=== PATIENT | female | born 1970 | race Hispanic/Latino ===

== ENCOUNTER 2016-11-25 12:40 | Emergency (ER) | payer OTHER ==
[~2016-11-25] VITALS: Ht 160 cm; Wt 76.7 kg
[~2016-11-25 12:40] MED LIST: ALEVE220 M2 PO; ALEVE220 MG PO; AMOXICILLIN875 MG PO; ATARAX,VISTARIL25 MG PO; FLEXERIL10 MG PO; HYDROCODON-ACE1 EA12 PO; IBUPROFEN800 MG PO; MOTRIN800 MG PO; OXYCODONE H5 MG/5 ML PO; PREDNISONE10 MG PO; PREDNISONE20 MG PO; TYLENOL WITH C1 EACH PO; ULTRAM50 MG PO; VENTOLIN HFA18 GM IH
[2016-11-25] MEDS ORDERED: NAPROSYN500 MG PO (13:06)
[2016-11-25] MEDS ORDERED: FLEXERIL10 MG PO (13:06)
[2016-11-25] MEDS ORDERED: PREDNISONE20 MG PO (13:06)
[2016-11-25 13:38] VITALS: BP 131/77
== END 2016-11-25 13:39 | disposition home or self-care (01) ==
LOC: EME 12:40
DX: M54.5 Low back pain (principal); M79.605 Pain in left leg; J45.909 Unspecified asthma, uncomplicated
CPT/HCPCS: 99281; 99283; J1885; J7512

== ENCOUNTER 2017-01-25 11:33 | Emergency (ER) | payer OTHER ==
[~2017-01-25] VITALS: Ht 154.9 cm; Wt 75.5 kg
[~2017-01-25 11:33] MED LIST changes: +NAPROSYN500 MG PO
[2017-01-25 12:47] VITALS: BP 118/79
== END 2017-01-25 12:48 | disposition home or self-care (01) ==
LOC: EME 11:33
DX: M54.9 Dorsalgia, unspecified (principal); G89.29 Other chronic pain
CPT/HCPCS: 99281; 99283

== ENCOUNTER 2017-07-16 05:07 | Emergency (ER) | payer OTHER ==
[~2017-07-16] VITALS: Ht 154.9 cm; Wt 73.4 kg
[2017-07-16] MEDS ORDERED: MEDROL DOSEPAK4 MG PO (08:42)
[2017-07-16] MEDS ORDERED: TYLENOL WITH C1 EACH PO (08:43)
[2017-07-16 10:19] VITALS: BP 115/67
== END 2017-07-16 09:15 | disposition home or self-care (01) ==
LOC: EME 05:07
DX: M54.42 Lumbago with sciatica, left side (principal)
CPT/HCPCS: 99281; 99284; J1885; J2270

== ENCOUNTER 2017-09-23 12:32 | Emergency (ER) | payer OTHER ==
[~2017-09-23] VITALS: Ht 154.9 cm; Wt 75.2 kg
[~2017-09-23 12:32] MED LIST changes: +MEDROL DOSEPAK4 MG PO
[2017-09-23] MEDS ORDERED: CONSTULOSE10 GM/15 M PO (17:21)
[2017-09-23 18:10] VITALS: BP 110/80
== END 2017-09-23 18:18 | disposition home or self-care (01) ==
LOC: EME 12:32
DX: K59.00 Constipation, unspecified (principal); J45.909 Unspecified asthma, uncomplicated; Z98.890 Other specified postprocedural states
CPT/HCPCS: 99281; 99284; J2060

== ENCOUNTER 2018-06-11 10:52 | Emergency (ER) | payer OTHER ==
[~2018-06-11] VITALS: Ht 154.9 cm; Wt 76.0 kg
[~2018-06-11 10:52] MED LIST changes: +CONSTULOSE10 GM/15 M PO
[2018-06-11] MEDS ORDERED: NAPROSYN500 MG PO (11:54)
[2018-06-11 12:53] VITALS: BP 126/86
== END 2018-06-11 13:02 | disposition home or self-care (01) ==
LOC: EME 10:52
DX: G89.29 Other chronic pain (principal); M25.562 Pain in left knee; M54.9 Dorsalgia, unspecified; J45.909 Unspecified asthma, uncomplicated
CPT/HCPCS: 73564; 99281; 99283